=== PATIENT | male | born 1955 | race Asian ===

== ENCOUNTER 2017-11-28 03:09 | Inpatient (IN) | END 2017-11-29 13:07 | disposition home or self-care (01) | DRG 247 ==

== ENCOUNTER 2018-07-10 10:35 | Emergency (ER) | payer SELFPAY ==
[~2018-07-10] VITALS: Ht 172.7 cm; Wt 62.6 kg
[~2018-07-10 10:35] MED LIST: ASPI-817 PO; ATOR-2 PO; CARV3.1260 PO; LOSA50TA2 PO; TICA90TA PO
[2018-07-10 10:44] VITALS: BP 155/86; PULSE 103; RESP 18; Ht 172.7 cm; Wt 62.6 kg
== END 2018-07-10 16:21 | disposition left against medical advice (07) ==
LOC: FTE 10:35
DX: Z53.21 Procedure and treatment not carried out due to patient leaving prior to being seen by health care provider (principal)

== ENCOUNTER 2018-07-14 09:13 | Emergency (ER) | payer MEDICARE, OTHER ==
[~2018-07-14] VITALS: Ht 175.3 cm; Wt 61.9 kg
[2018-07-14 09:28] VITALS: RESP 18; Ht 175.3 cm; Wt 61.9 kg
[2018-07-14] MEDS ORDERED: TRAM50TA2 PO (11:38)
[2018-07-14] MEDS ORDERED: IBUP-1561 PO (11:39)
--- NOTE | 2018-07-14 11:45 | ERD ---
ER Documentation Chief Complaint Chief Complaint RT SIDE RIB PAIN ON AND OFF X 1 MONTH S/P FALL HPI 63-year-old male presents for recheck after a fall approximately 2 months ago. He sustained multiple rib fractures, right clavicle fracture, and according to note from PCP transverse process fracture of the cervical spine as well as unspecified wrist injury. Patient is having persistent pain although much improved. He has is expecting to see a specialist today for follow-up of his fractures. He has right wrist pain as well. He states that he has had multiple x-rays and an MRI. He does not have copies of his reports. Apparently he has no PCP and is not had orthopedic follow-up since being released after a 3-day group home stay. Denies fevers, chest pain, shortness of breath, deficits, weakness. ROS All systems reviewed and are negative except as per history of present illness. Medications Home Meds Active Scripts Ibuprofen* (Motrin*) 400 Mg Tab, 400 MG PO Q6, #20 TAB Prov:YIFAN NAQVI MD 07/14/18 Tramadol HCl (Tramadol HCl) 50 Mg Tablet, 50 MG PO Q4 PRN for PAIN, #20 TAB Prov:YIFAN NAQVI MD 07/14/18 Aspirin* (Aspirin* EC) 81 Mg Tablet.dr, 81 MG PO DAILY, #90 TAB 1 Refill Prov:ELYSIA CHASE 11/29/17 Losartan Potassium* (Cozaar*) 50 Mg Tablet, 100 MG PO DAILY, #60 TAB 1 Refill Prov:ELYSIA CHASE 11/29/17 Carvedilol* (Carvedilol*) 3.125 Mg Tablet, 3.125 MG PO BID, #60 TAB 1 Refill Prov:ELYSIA CHASE 11/29/17 Atorvastatin* (Atorvastatin*) 80 Mg Tablet, 80 MG PO DAILY@21, #60 TAB 1 Refill Prov:ELYSIA CHASE 11/29/17 Ticagrelor* (Brilinta*) 90 Mg Tablet, 90 MG PO BID, #60 TAB 3 Refills Prov:ELYSIA CHASE 11/29/17 Allergies Allergies: Coded Allergies: No Known Allergy (Unverified , 07/14/18) PMhx/Soc History of Surgery: Yes (SHOULDER SURGERY ) Anesthesia Reaction: No Hx Neurological Disorder: No Hx Respiratory Disorders: No Hx Cardiac Disorders: Yes (HTN) Hx Psychiatric Problems: No Hx Miscellaneous Medical Probl: Yes (DM) Hx Alcohol Use: No Hx Substance Use: No Hx Tobacco Use: No FmHx Family History: No diabetes, No coronary disease, No other Physical Exam Vitals Vital Signs Date Temp Pulse Resp B/P (MAP) Pulse Ox O2 O2 Flow FiO2 Time Delivery Rate 07/14/18 98.0 96 18 166/87 99 09:28 (113) Physical Exam Const: No acute distress. Pleasant [id number]. Head: Atraumatic Eyes: Normal Conjunctiva ENT: Normal External Ears, Nose and Mouth. Neck: Full range of motion. No meningismus. Resp: Clear to auscultation bilaterally. Tenderness and deformity of the right midshaft clavicle. No crepitance, instability appreciated. Cardio: Regular rate and rhythm, no murmurs Abd: Soft, non tender, non distended. Normal bowel sounds Skin: No petechiae or rashes Back: No midline or flank tenderness Ext: No cyanosis, or edema. Mild tenderness right distal radius without significant deformities, restricted range of motion, warmth, erythema effusion, deficits. Neur: Awake and alert Psych: Normal Mood and Affect Procedures/MDM Chest X-ray 1V Interpreted by me: Soft Tissue: No acute abnormalities Bones: Healing right midshaft clavicle fracture. And right posterior rib fractures Mediastinum/Cardiac Silhouette/Lungs: No acute abnormalities. Impression- healing right clavicle and right posterior rib fractures without hemothorax, pneumothorax, acute abnormalities. X-ray Wrist 3V Interpreted by me: Scaphoid: Normal Bones: sub Acute comminuted intra-articular right distal radius fracture. Joints: No dislocation Foreign body: None. Impression-subacute healing fracture right distal radius fracture X-ray C spine 3V Interpreted by me: Bones: No fracture Joints: No dislocation Foreign body: None. Impression have degenerative changes without acute fracture dislocation of cervical spine x-ray. Patient presents with pain in the neck, right wrist, and ribs status post fall approximately 2 months ago. He has no evidence of acute unstable fracture. Patient has no appreciable bony tenderness of the cervical spine and cleared by [facility]. Patient is alert without deficits and ambulatory without appreciable acute signs or symptoms. Patient will be referred to local orthopedist for management of his subacute fractures. No evidence of complications or deficits, signs of infection. He will be treated with a short course of continuation of tramadol, ibuprofen, and orthopedic referral and return precautions. The patient was stable with no new complaints during the ER course. Clinically, there is no current evidence to suggest meningitis, sepsis, acute abdomen, pneumonia, stroke, acute coronary syndrome, pulmonary embolism, aortic dissection or any other emergent condition appearing to require further ev aluation or hospitalization. Patient counseled regarding my diagnostic impression and care plan. Prior to discharge all questions answered. Pt agrees with treatment plan and understands strict return precautions. Pt is instructed to follow up with primary care provider within 24-48 hours. Precautionary instructions provided including instructions to return to the ER if not improvi ng or for any worsening or changing symptoms or concerns. Departure Diagnosis: Primary Impression: Wrist fracture, right Encounter type: initial encounter Fracture type: closed Qualified Codes: S62.101A - Fracture of unspecified carpal bone, right wrist, initial encounter for closed fracture Additional Impression: Rib pain Condition: Stable Patient Instructions: Fracture, Rib, Fracture, Wrist [General] Referrals: KARIE SPENCER MD [facility] Hours: Fri-Fri 9:00 AM - 5:00 PM Additional Instructions: No acute findings on cervical spine x-ray. Chest x-ray shows healed rib fractures. Wrist x-ray shows healing fracture. See orthopedist and specialist for further evaluation treatment. Take copies of previous reports. YIFAN NAQVI MD Jul 14, 2018 11:45
[2018-07-14 12:04] VITALS: BP 141/72; PULSE 98
== END 2018-07-14 12:07 | disposition home or self-care (01) ==
LOC: FTE 09:13
DX: S62.101A Fracture of unspecified carpal bone, right wrist, initial encounter for closed fracture (principal); I10 Essential (primary) hypertension; E11.9 Type 2 diabetes mellitus without complications; W19.XXXA Unspecified fall, initial encounter; Y92.9 Unspecified place or not applicable; Z79.82 Long term (current) use of aspirin
CPT/HCPCS: 71045; 72040